=== PATIENT | female | born 1945 ===

== ENCOUNTER 2024-11-18 21:40 | Inpatient (IN) | payer MEDICARE, OTHER ==
[~2024-11-18] VITALS: Ht 152.4 cm; Wt 59.9 kg
[2024-11-18 21:42] VITALS: BP 97/55; TEMP 97.9; O2SAT 92
[2024-11-18] MEDS ORDERED: MAGNESIUM HYDROXIDE 30 ML LIQUID UDC PO PRN (23:30)
[2024-11-18] MEDS ORDERED: ONDANSETRON 4 MG/2 ML VIAL IV PRN (23:30)
[2024-11-18 23:56] VITALS: BP 95/61; TEMP 97.5; O2SAT 95
[2024-11-19] VITALS (7 sets, daily range): BP systolic 94–112; BP diastolic 57–90; TEMP 97.5–98.7; O2SAT 94–97
[2024-11-19] MEDS ORDERED: APIX5TAB PO (00:14)
[2024-11-19] MEDS ORDERED: GUAI100S69 PO (00:14)
[2024-11-19] MEDS ORDERED: AMIN30LI27 PO (00:14)
[2024-11-19] MEDS ORDERED: LACT10SO58 PO (00:14)
[2024-11-19] MEDS ORDERED: MULT-213 PO (00:14)
[2024-11-19] MEDS ORDERED: ACET325T53 PO (00:14)
[2024-11-19] MEDS ORDERED: FAMO-132 PO (00:14)
[2024-11-19] MEDS ORDERED: ASPI-1169 PO (00:14)
[2024-11-19] MEDS ORDERED: CRAN425C6 PO (00:14)
[2024-11-19] MEDS ORDERED: METO75TA PO (00:14)
[2024-11-19] MEDS ORDERED: DILT-32 PO (00:14)
[2024-11-19] MEDS ORDERED: DIVA125C2 PO (00:14)
[2024-11-19] MEDS ORDERED: ATOR80TA PO (00:14)
[2024-11-19] MEDS ORDERED: ACET325C7 PO (00:14)
[2024-11-19] MEDS ORDERED: FURO20TA4 PO (00:14)
[2024-11-19] MEDS ORDERED: CLOB15CR5 TP (00:26)
[2024-11-19] MEDS: ENOXAPARIN SODIUM 40 MG/0.4 ML DISP.SYRIN SQ SCH (01:03)
[2024-11-19] MEDS: IV D5 1/2 NS 1000 ML 1,000 ML IV PRN (01:04)
[2024-11-19 06:41] LABS: PLATELET COUNT (AUTO) 371 K/uL (179-408); RED BLOOD CELL COUNT(AUTO) 3.77 MIL/uL (3.63-4.92); RED CELL DISTRIBUTION WIDTH 14.8 % (12.3-17.7); WHITE BLOOD COUNT (AUTO) 7.1 K/uL (3.8-11.8)
[2024-11-19 07:03] LABS: CREATININE 0.5 mg/dL (0.6-1.3); SODIUM SERUM 144 mmol/L (136-145); UREA NITROGEN, BLOOD 17 mg/dL (7-18)
[2024-11-19] MEDS: METOPROLOL TARTRATE 50 MG TABLET PO SCH (08:52)
[2024-11-19] MEDS: DILTIAZEM HCL 60 MG TABLET PO SCH (08:53)
[2024-11-19] MEDS: APIXABAN 5 MG TABLET PO SCH (08:55)
[2024-11-19] MEDS ORDERED: CEFTRIAXONE 500 MG VIAL IV SCH (09:00)
[2024-11-19] MEDS: FUROSEMIDE 20 MG TABLET PO SCH (09:05)
[2024-11-19] MEDS ORDERED: GUAIFENESIN SUGAR FREE 100 MG/5 ML UDC PO PRN (11:00)
[2024-11-19] MEDS ORDERED: Medication Not On Formulary EA (Acetaminophen (Tylenol) 2 CAP) PO PRN (11:00)
[2024-11-19] MEDS ORDERED: LACTULOSE 20 G/30 ML LIQUID UDC PO PRN (12:00)
[2024-11-19] MEDS: DIVALPROEX SPRINKLE 125 MG CAP.SPRINK PO SCH (16:34)
[2024-11-19] MEDS: PROTEIN SUPPLEMENT (PROSTAT) 30 ML LIQUID PO SCH (16:36)
[2024-11-19] MEDS ORDERED: DILTIAZEM HCL CD 120 MG CAP.SR.24H PO SCH (17:00)
[2024-11-19] MEDS ORDERED: FUROSEMIDE 20 MG TABLET PO SCH (17:00)
[2024-11-19] MEDS ORDERED: Medication Not On Formulary EA (Amino Acids/Protein Hydrolys (Pro-Stat Sugar Free Liquid PO SCH (17:00)
[2024-11-19] MEDS ORDERED: APIXABAN 5 MG TABLET PO SCH (17:00)
[2024-11-19] MEDS: CLOTRIMAZOLE 1% CREAM 30 GM TUBE TOP SCH (18:42)
[2024-11-19] MEDS: ATORVASTATIN 40 MG TABLET PO SCH (20:28)
[2024-11-20 04:30] VITALS: BP 129/94; TEMP 97.6; O2SAT 96
[2024-11-20 06:44] LABS: PLATELET COUNT (AUTO) 366 K/uL (179-408); RED BLOOD CELL COUNT(AUTO) 3.78 MIL/uL (3.63-4.92); RED CELL DISTRIBUTION WIDTH 14.8 % (12.3-17.7); WHITE BLOOD COUNT (AUTO) 7.0 K/uL (3.8-11.8)
[2024-11-20 07:09] LABS: CREATININE 0.4 mg/dL (0.6-1.3); SODIUM SERUM 141 mmol/L (136-145); UREA NITROGEN, BLOOD 14 mg/dL (7-18)
[2024-11-20 07:50] VITALS: BP 123/71; TEMP 98.2; O2SAT 98
[2024-11-20] MEDS: AMIODARONE HCL IV 150 MG in IV DEXTROSE 5% 100 ML IV ONE (07:53)
[2024-11-20] MEDS: AMIODARONE HCL IV 450 MG in IV DEXTROSE 5% 250 ML IV PRN (08:16)
[2024-11-20] MEDS: FAMOTIDINE 20 MG TABLET PO SCH (08:37)
[2024-11-20] MEDS: ACETAMINOPHEN 325 MG TABLET PO SCH (08:38)
[2024-11-20] MEDS: MULTIVIT, IRON, MIN NO. 8, FA TABLET PO SCH (08:38)
[2024-11-20] MEDS: ASPIRIN 81 MG TAB.CHEW PO SCH (08:39)
[2024-11-20] MEDS ORDERED: Medication Not On Formulary EA (Cranberry Extract (Cranberry) 425 MG) PO SCH (09:00)
[2024-11-20] MEDS ORDERED: ACETAMINOPHEN 325 MG TABLET-SA PATIENTS-PAIN ONLY PO SCH (09:00)
[2024-11-20] MEDS ORDERED: Medication Not On Formulary EA (Multivitamins W-Minerals (Multivitamin With Minerals) 1 PO SCH (09:00)
[2024-11-20 12:03] VITALS: BP 107/62; TEMP 98; O2SAT 98
[2024-11-20] MEDS: SPIRONOLACTONE 25 MG TABLET PO SCH (14:30)
[2024-11-20 15:20] VITALS: BP 116/77; TEMP 97.9; O2SAT 98
[2024-11-20] MEDS ORDERED: DILTIAZEM HCL 60 MG TABLET PO SCH (17:00)
[2024-11-20] MEDS: REMEDY ESSENTIAL ZINC PASTE 113 GM TP PRN (17:19)
[2024-11-20] MEDS: METOPROLOL SUCCINATE XL 50 MG TAB.SR.24H PO SCH (17:20)
[2024-11-20 20:00] VITALS: BP 96/71; TEMP 98.8; O2SAT 98
[2024-11-21] VITALS (7 sets, daily range): BP systolic 92–127; BP diastolic 61–83; TEMP 97.1–98.3; O2SAT 93–97
[2024-11-21 04:56] LABS: PLATELET COUNT (AUTO) 334 K/uL (179-408); RED BLOOD CELL COUNT(AUTO) 3.88 MIL/uL (3.63-4.92); RED CELL DISTRIBUTION WIDTH 14.7 % (12.3-17.7); WHITE BLOOD COUNT (AUTO) 7.7 K/uL (3.8-11.8)
[2024-11-21 05:11] LABS: ASPARTATE AMINOTRANSFERASE 15 U/L (15-37); CREATININE 0.6 mg/dL (0.6-1.3); SODIUM SERUM 144 mmol/L (136-145); TOTAL PROTEIN, SERUM 6.4 g/dL (6.4-8.2); UREA NITROGEN, BLOOD 14 mg/dL (7-18)
[2024-11-21 05:49] LABS: EOSINOPHILS % (MANUAL) 16 % (0-8); LYMPHOCYTES % (MANUAL) 24 % (20-40); MONOCYTES % (MANUAL) 6 % (2-10); NEUTROPHILS % (MANUAL) 54 % (42-75); PLATELET ESTIMATE ADEQUATE
[2024-11-21] MEDS: DIGOXIN 500 MCG/2 ML AMP IV ONE ×2 (13:45→20:26)
[2024-11-21] MEDS: POTASSIUM CHLORIDE 20 MEQ POWDER PACKET PO ONE (13:46)
[2024-11-21] MEDS: ACETAMINOPHEN 325 MG TABLET PO PRN (16:48)
[2024-11-22 00:52] VITALS: BP 120/54; TEMP 97.9; O2SAT 97
[2024-11-22 06:13] LABS: PLATELET COUNT (AUTO) 336 K/uL (179-408); RED BLOOD CELL COUNT(AUTO) 3.79 MIL/uL (3.63-4.92); RED CELL DISTRIBUTION WIDTH 14.4 % (12.3-17.7); WHITE BLOOD COUNT (AUTO) 7.7 K/uL (3.8-11.8)
[2024-11-22 06:19] LABS: CREATININE 0.5 mg/dL (0.6-1.3); SODIUM SERUM 142 mmol/L (136-145); UREA NITROGEN, BLOOD 17 mg/dL (7-18)
[2024-11-22 07:42] VITALS: BP 112/89; TEMP 97.8; O2SAT 96
[2024-11-22] MEDS: DIGOXIN 125 MCG TABLET PO SCH (08:08)
[2024-11-22] MEDS ORDERED: METO-357 PO (11:23)
[2024-11-22] MEDS ORDERED: FURO20TA4 PO (11:23)
[2024-11-22] MEDS ORDERED: ACET325T53 PO ×2 (11:23)
[2024-11-22] MEDS ORDERED: CEFT1VIA15 IV (11:23)
[2024-11-22] MEDS ORDERED: DIGO125T5 PO (11:23)
[2024-11-22] MEDS ORDERED: APIX5TAB PO (11:23)
[2024-11-22] MEDS ORDERED: SPIR25TA PO (11:23)
[2024-11-22 12:00] VITALS: BP 97/59; TEMP 97.8; O2SAT 96
[2024-11-22] MEDS: PERMETHRIN 5% CREAM 60 GM TUBE TP ONE (13:36)
[2024-11-22] MEDS ORDERED: METOPROLOL SUCCINATE XL 50 MG TAB.SR.24H PO SCH (17:00)
== END 2024-11-22 14:10 | DRG 690 ==
LOC: MEDSURG3 21:40 → TELE3 23:23 → TELE-TD3 11-20 06:45 → TELE3 11-20 13:20
PROVIDERS: ATTEND Nurse Practitioner Family
DX: N39.0 Urinary tract infection, site not specified (principal); I48.20 Chronic atrial fibrillation, unspecified; I42.9 Cardiomyopathy, unspecified; D68.59 Other primary thrombophilia; I50.22 Chronic systolic (congestive) heart failure; R62.7 Adult failure to thrive; Z68.26 Body mass index [BMI] 26.0-26.9, adult; E86.0 Dehydration; I11.0 Hypertensive heart disease with heart failure; L30.9 Dermatitis, unspecified; Z79.01 Long term (current) use of anticoagulants; K21.9 Gastro-esophageal reflux disease without esophagitis; Z79.82 Long term (current) use of aspirin; Z79.899 Other long term (current) drug therapy; F03.90 Unspecified dementia, unspecified severity, without behavioral disturbance, psychotic disturbance, mood disturbance, and anxiety; R53.1 Weakness
CPT/HCPCS: 36415; 70030-TC; 71045; 83735; 84100; 84443; 85025; 93005; 93307; G0378; J0282; J0696; J1160; J1650; J7040; J7050